=== PATIENT | female | born 1980 ===

== ENCOUNTER 2021-01-28 06:08 | Inpatient (IN) ==
[2021-01-28 06:47] LABS: Basophils % 0.5 % (0.0-0.8); Eosinophils # 0.2 10*3/uL (0.0-0.87); Eosinophils % 2.8 % (0.00-10.9); Hematocrit 34.2 VOL% (35.7-47.0); Hemoglobin 10.7 GM/DL (12.0-16.0); Immature Granulocytes % 0.3 %; Immature Granulocytes Absolute 0.02 #; Lymphocytes # 2.6 10*3/uL (1.4-4.0); Lymphocytes % 33.1 % (21.3-54.2); Mean Corpuscular HGB Conc 31.3 GM/DL (32-36); Mean Corpuscular Volume 90.2 FL (87-102); Mean Platelet Volume 10.2 FL (9.6-12.0); Monocytes % 7.7 % (1.7-12.7); Neutrophils % 55.6 % (38.7-73.9); Platelet Count 306 T/CUMM (130-400); Red Blood Count 3.79 MC/CUMM (3.8-5.5); Red Cell Distribution Width 14.7 % (9.3-17.3); White Blood Count 7.8 T/CUMM (4-12)
[2021-01-28 07:00] LABS: Calcium 8.7 MG/DL (8.5-10.1); Osmolality,Calculated 274.8 MOS/KG (273-304); Potassium 3.7 MMOL/L (3.5-5.1)
[2021-01-28] MEDS ORDERED: DIAZEPAM 5 MG TABLET PO ONE (07:28)
[2021-01-28] MEDS ORDERED: GABAPENTIN 400 MG CAPSULE PO ONE (07:28)
[2021-01-28] MEDS ORDERED: FAMOTIDINE 20 MG TABLET PO ONE (07:28)
[2021-01-28] MEDS ORDERED: ALBUTEROL 2.5 MG/3 ML NEB RESP TX ONE (07:28)
[2021-01-28] MEDS ORDERED: ACETAMINOPHEN 500 MG TABLET PO ONE (07:28)
[2021-01-28] MEDS ORDERED: ONDANSETRON 4 MG/2 ML VIAL ONE (07:43)
[2021-01-28] MEDS ORDERED: fentaNYL 100 MCG/2 ML VIAL ONE ×2 (07:43→11:20)
[2021-01-28] MEDS ORDERED: ROCURONIUM 50 MG/5 ML VIAL IV ONE (07:43)
[2021-01-28] MEDS ORDERED: propofoL 200 MG/20 ML VIAL IV ONE (07:43)
[2021-01-28] MEDS ORDERED: MIDAZOLAM 2 MG/2 ML VIAL ONE (07:43)
[2021-01-28] MEDS ORDERED: LIDOCAINE 2% 5 ML VIAL ONE (07:43)
[2021-01-28] MEDS ORDERED: TISSUE ADHESIVE 1 EACH APPLICATOR TOP ONE (07:50)
[2021-01-28] MEDS: LACTATED RINGERS 1,000 ML IV SCH ×3 (08:09→19:38)
[2021-01-28] MEDS ORDERED: SCOPOLAMINE 1.5 MG PATCH TRANSDERM ONE (09:07)
[2021-01-28] MEDS ORDERED: METOCLOPRAMIDE 10 MG/2 ML VIAL ONE (09:22)
[2021-01-28] MEDS ORDERED: NEOSTIGMINE 10 MG/10 ML VIAL ONE (11:43)
[2021-01-28] MEDS ORDERED: GLYCOPYRROLATE 0.4 MG/2 ML VIAL ONE (11:43)
[2021-01-28] MEDS ORDERED: SEVOFLURANE 1 UNIT/15 MINUTE INH ONE (11:55)
[2021-01-28] MEDS ORDERED: ACETAMINOPHEN 325 MG TABLET PO PRN (12:06)
[2021-01-28] MEDS: HYDROmorphone 2 MG/1 ML VIAL IV PRN ×6 (12:10→18:59)
[2021-01-28] MEDS ORDERED: ONDANSETRON 4 MG/2 ML VIAL IV PRN (12:15)
[2021-01-28] MEDS ORDERED: DEXAMETHASONE 4 MG/1 ML VIAL ONE (13:04)
[2021-01-28] MEDS ORDERED: BUPIVACAINE MPF 0.25% 30 ML VIAL ONE (13:04)
[2021-01-28] MEDS ORDERED: CIPROFLOXACIN LEFT EAR PRN (14:59)
[2021-01-28] MEDS ORDERED: HYDROCORTISONE LEFT EAR PRN (14:59)
[2021-01-28] MEDS ORDERED: [UNRECOGNIZED DRUG - OTHER] LEFT EAR PRN (14:59)
[2021-01-28] MEDS: PIPERACILLIN/TAZOBACTAM 3,375 MG in SODIUM CHLORIDE 0.9% 100 ML IV SCH ×2 (15:12→20:57)
[2021-01-28] MEDS: KETOROLAC 15 MG/1 ML VIAL IV SCH ×2 (15:15→20:59)
[2021-01-28] MEDS ORDERED: PHENOL 1.4% THROAT SPRAY 177 ML BOTTLE PO PRN (16:02)
[2021-01-28] MEDS: ONDANSETRON 4 MG/2 ML VIAL IV PRN (19:38)
[2021-01-28] MEDS ORDERED: diphenhydrAMINE CAP 25 MG CAPSULE ONE (20:49)
[2021-01-28] MEDS: buPROPion XL 150 MG TABLET PO SCH (20:58)
[2021-01-29] MEDS: HYDROmorphone 2 MG/1 ML VIAL IV PRN ×6 (00:05→21:03)
[2021-01-29] MEDS: KETOROLAC 15 MG/1 ML VIAL IV SCH ×4 (02:51→21:04)
[2021-01-29 05:36] LABS: Mean Platelet Volume 10.2 FL (9.6-12.0); Red Cell Distribution Width 14.9 % (9.3-17.3)
[2021-01-29 05:42] LABS: Basophils % 0.4 % (0.0-0.8); Eosinophils # 0.1 10*3/uL (0.0-0.87); Eosinophils % 1.3 % (0.00-10.9); Hematocrit 31.9 VOL% (35.7-47.0); Hemoglobin 9.8 GM/DL (12.0-16.0); Immature Granulocytes % 0.3 %; Immature Granulocytes Absolute 0.03 #; Lymphocytes # 2.3 10*3/uL (1.4-4.0); Lymphocytes % 25.9 % (21.3-54.2); Mean Corpuscular HGB Conc 30.7 GM/DL (32-36); Mean Corpuscular Volume 90.9 FL (87-102); Monocytes % 8.2 % (1.7-12.7); Neutrophils % 63.9 % (38.7-73.9); Platelet Count 294 T/CUMM (130-400); Red Blood Count 3.51 MC/CUMM (3.8-5.5)
[2021-01-29 05:43] LABS: PT Patient Result 11.5 SECS (10.5-12.0)
[2021-01-29] MEDS: ONDANSETRON 4 MG/2 ML VIAL IV PRN ×4 (05:46→21:04)
[2021-01-29] MEDS: PIPERACILLIN/TAZOBACTAM 3,375 MG in SODIUM CHLORIDE 0.9% 100 ML IV SCH ×3 (05:47→21:05)
[2021-01-29] MEDS: diphenhydrAMINE CAP 25 MG CAPSULE PO PRN ×2 (05:48→21:04)
[2021-01-29 05:57] LABS: Albumin 2.9 G/DL (3.4-5.0); Bilirubin,Total 0.6 MG/DL (0.20-1.00); Calcium 8.5 MG/DL (8.5-10.1); Osmolality,Calculated 272.8 MOS/KG (273-304); Potassium 3.6 MMOL/L (3.5-5.1); Total Protein 6.7 G/DL (6.4-8.2)
[2021-01-29 05:59] LABS: Bilirubin,Direct 0.11 MG/DL (0.0-0.20); Bilirubin,Indirect 0.4 MG/DL (0.0-1.0); Bilirubin,Total 0.5 MG/DL (0.20-1.00); Total Protein 6.8 G/DL (6.4-8.2)
[2021-01-29] MEDS ORDERED: ALBUTEROL 2.5 MG/3 ML NEB RESP TX ONE (07:26)
[2021-01-29] MEDS ORDERED: FAMOTIDINE 20 MG/2 ML VIAL IV ONE (07:27)
[2021-01-29] MEDS ORDERED: INDOMETHACIN SUPP 50 MG SUPP RECTAL ONE (08:00)
[2021-01-29] MEDS ORDERED: diphenhydrAMINE CAP 25 MG CAPSULE PO PRN (08:43)
[2021-01-29] MEDS ORDERED: PROMETHAZINE 25 MG/1 ML VIAL IM PRN (09:57)
[2021-01-29] MEDS ORDERED: FLUCONAZOLE 200 MG TABLET PO ONE (09:58)
[2021-01-29] MEDS: PANTOPRAZOLE 40 MG TABLET PO SCH (10:04)
[2021-01-29] MEDS: LACTATED RINGERS 1,000 ML IV SCH ×2 (10:08→12:14)
[2021-01-29] MEDS ORDERED: SCOPOLAMINE 1.5 MG PATCH TRANSDERM ONE (10:39)
[2021-01-29] MEDS ORDERED: fentaNYL 100 MCG/2 ML VIAL ONE (10:43)
[2021-01-29] MEDS ORDERED: propofoL 200 MG/20 ML VIAL IV ONE (10:43)
[2021-01-29] MEDS ORDERED: LIDOCAINE 2% 5 ML VIAL ONE (10:43)
[2021-01-29] MEDS ORDERED: SUCCINYLCHOLINE 200 MG/10 ML VIAL ONE (10:44)
[2021-01-29] MEDS ORDERED: MIDAZOLAM 2 MG/2 ML VIAL ONE (10:47)
[2021-01-29] MEDS ORDERED: DEXAMETHASONE 4 MG/1 ML VIAL ONE (10:47)
[2021-01-29] MEDS ORDERED: ONDANSETRON 4 MG/2 ML VIAL ONE (10:47)
[2021-01-29] MEDS: buPROPion XL 150 MG TABLET PO SCH ×2 (11:48→21:04)
[2021-01-29] MEDS ORDERED: SEVOFLURANE 1 UNIT/15 MINUTE INH ONE (13:03)
[2021-01-29] MEDS: FLUCONAZOLE 200 MG TABLET PO SCH (15:58)
[2021-01-29] MEDS ORDERED: PROMETHAZINE INJ 12.5 MG in SODIUM CHLORIDE 0.9% 50 ML IV PRN (16:04)
[2021-01-29] MEDS ORDERED: ONDANSETRON 4 MG/2 ML VIAL IV PRN (16:24)
[2021-01-29] MEDS: PROMETHAZINE 25 MG/1 ML VIAL IM PRN (17:12)
[2021-01-30] MEDS: HYDROmorphone 2 MG/1 ML VIAL IV PRN ×4 (00:01→12:01)
[2021-01-30] MEDS: KETOROLAC 15 MG/1 ML VIAL IV SCH ×2 (04:02→08:11)
[2021-01-30] MEDS: PIPERACILLIN/TAZOBACTAM 3,375 MG in SODIUM CHLORIDE 0.9% 100 ML IV SCH (05:56)
[2021-01-30] MEDS: diphenhydrAMINE CAP 25 MG CAPSULE PO PRN (05:56)
[2021-01-30 06:30] LABS: Basophils % 0.1 % (0.0-0.8); Eosinophils % 0.2 % (0.00-10.9); Hematocrit 30.3 VOL% (35.7-47.0); Hemoglobin 9.3 GM/DL (12.0-16.0); Immature Granulocytes % 0.6 %; Immature Granulocytes Absolute 0.06 #; Lymphocytes # 1.5 10*3/uL (1.4-4.0); Lymphocytes % 13.4 % (21.3-54.2); Mean Corpuscular HGB Conc 30.7 GM/DL (32-36); Mean Corpuscular Volume 90.4 FL (87-102); Mean Platelet Volume 10.4 FL (9.6-12.0); Neutrophils % 79.7 % (38.7-73.9); Platelet Count 297 T/CUMM (130-400); Red Blood Count 3.35 MC/CUMM (3.8-5.5); White Blood Count 10.8 T/CUMM (4-12)
[2021-01-30 07:00] LABS: Albumin 2.8 G/DL (3.4-5.0); Bilirubin,Total 0.8 MG/DL (0.20-1.00); Calcium 8.2 MG/DL (8.5-10.1); Osmolality,Calculated 274.7 MOS/KG (273-304); Potassium 3.9 MMOL/L (3.5-5.1); Total Protein 6.7 G/DL (6.4-8.2)
[2021-01-30] MEDS: FLUCONAZOLE 200 MG TABLET PO SCH (08:10)
[2021-01-30] MEDS: buPROPion XL 150 MG TABLET PO SCH (08:10)
[2021-01-30] MEDS: PANTOPRAZOLE 40 MG TABLET PO SCH (08:10)
[2021-01-30] MEDS: PROMETHAZINE 25 MG/1 ML VIAL IM PRN (08:18)
[2021-01-30] MEDS: LACTATED RINGERS 1,000 ML IV SCH (10:57)
[2021-01-30 12:25] VITALS: BP 135/75
== END 2021-01-30 14:49 | disposition home or self-care (01) | DRG 412 ==
LOC: N.SDSINP 06:08 → N.OR 06:08 → N.SDSINP 06:09 → N.3E 13:38
PROVIDERS: ADMIT Student in an Organized Health Care Education/Training Program; ATTEND Student in an Organized Health Care Education/Training Program
PROC: LAPCHOL (2021-01-28 09:04)
PROC: ERCPWSP (ICD-10-PCS; 2021-01-29 13:05)